=== PATIENT | female | born 1950 | race Two or more races ===

== ENCOUNTER → 2022-02-12 | Outpatient (CLI) | payer MEDICARE, BC | END | disposition home or self-care (01) | LOC: LAB 11:57 | PROVIDERS: ATTEND Internal Medicine Pulmonary Disease | DX: Z01.812 Encounter for preprocedural laboratory examination (principal); Z20.822 Contact with and (suspected) exposure to COVID-19 | CPT/HCPCS: 36415; 87426 ==

== ENCOUNTER → 2022-02-13 | Outpatient (CLI) | payer MEDICARE, BC ==
[~2022-02-13] MED LIST: ALBUTEROL SULF 2.5 MG/0.5ML(0.5%) NEB SOLN ONE
== END | disposition home or self-care (01) ==
LOC: RT 07:45
PROVIDERS: ATTEND Internal Medicine Pulmonary Disease
DX: R06.02 Shortness of breath (principal)
CPT/HCPCS: 94060; 94727; 94729